=== PATIENT | male | born 1950 | race African-American/Black ===

== ENCOUNTER 2017-10-24 11:01 | Emergency (ER) | payer MEDICARE, OTHER ==
[2017-10-24] MEDS: HYDROmorphONE 0.5 MG/0.5 ML SYG IM (12:36)
[2017-10-24] MEDS ORDERED: HYDROmorphONE 0.5 MG/0.5 ML SYG IM (14:32)
[2017-10-24] MEDS: KETOROLAC 15 MG INJ IM (14:51)
== END 2017-10-24 15:40 | disposition home or self-care (01) ==
LOC: FTE 11:01
DX: M25.512 Pain in left shoulder (principal); M75.90 Shoulder lesion, unspecified, unspecified shoulder; I10 Essential (primary) hypertension; E11.9 Type 2 diabetes mellitus without complications
CPT/HCPCS: 73030; 93005; 96372; 99284-25